=== PATIENT | female | born 1980 | race Caucasian/White ===

== ENCOUNTER 2022-10-29 19:51 | Observation (INO) ==
[2022-10-29] MEDS ORDERED: KETOROLAC 30 MG/1 ML VIAL IV STA (22:28)
[2022-10-29 22:46] LABS: Bilirubin,Urine Negative (Negative); Blood, Urine Moderate mg/dL (Negative); Urine Appearance Clear (Clear); Urine Color Orange (Yellow); Urine Specific Gravity 1.025 (1.001-1.035)
[2022-10-29 22:50] LABS: Calcium 9.2 MG/DL (8.5-10.1); Glucose,Urine (UA) 100 mg/dL (Negative); Ketones,Urine Trace mg/dL (Negative); Nitrite,Urine Positive (Negative); Osmolality,Calculated 283.1 MOS/KG (273-304); Potassium 3.7 MMOL/L (3.5-5.1)
[2022-10-29 22:51] LABS: Calcium Oxalate Crystals,Urine Occasional /HPF (Few); Mucus,Urine Occasional /LPF (Occasional); Protein,Urine 100 mg/dL (Negative); RBC,Urine 422 /HPF (0-4); Squamous Epithelial Cell,Urine Occasional /HPF (0-10)
[2022-10-29] MEDS ORDERED: cefTRIAXone 1,000 MG in SODIUM CHLORIDE 0.9% 100 ML IV STA (22:53)
[2022-10-30] MEDS ORDERED: ONDANSETRON 4 MG/2 ML VIAL IV PRN (02:02)
[2022-10-30] MEDS ORDERED: HYDROmorphone 1 MG/1 ML SYRINGE IV PRN (02:02)
[2022-10-30 06:08] LABS: Basophils # 0.1 10*3/uL (0.0-0.2); Basophils % 0.8 % (0.0-0.8); Eosinophils # 0.3 10*3/uL (0.0-0.87); Hematocrit 37.6 VOL% (35.7-47.0); Hemoglobin 12.5 GM/DL (12.0-16.0); Immature Granulocytes % 0.6 %; Immature Granulocytes Absolute 0.05 #; Lymphocytes # 3.5 10*3/uL (1.4-4.0); Lymphocytes % 41.2 % (21.3-54.2); Mean Corpuscular HGB Conc 33.2 GM/DL (32-36); Mean Corpuscular Volume 90.4 FL (87-102); Monocytes # 0.6 10*3/uL (0.11-0.8); Monocytes % 6.5 % (1.7-12.7); Neutrophils % 46.9 % (38.7-73.9); Platelet Count 264 T/CUMM (130-400); Red Blood Count 4.16 MC/CUMM (3.8-5.5); White Blood Count 8.6 T/CUMM (4-12)
[2022-10-30 06:27] LABS: Alanine Aminotransferase 19 U/L (13-56); Albumin 3.1 G/DL (3.4-5.0); Alkaline Phosphatase 79 U/L (45-117); Aspartate Amino Transferase 13 U/L (0-37); Bilirubin,Total < 0.39 MG/DL (0.20-1.00); Blood Urea Nitrogen 13 MG/DL (7-18); Calcium 8.2 MG/DL (8.5-10.1); Carbon Dioxide 22 MMOL/L (21-32); Chloride 113 MMOL/L (98-107); Glucose 116 MG/DL (74-106); Potassium 3.7 MMOL/L (3.5-5.1); Sodium 143 MMOL/L (136-145); Total Protein 6.5 G/DL (6.4-8.2)
[2022-10-30] MEDS ORDERED: PANTOPRAZOLE 40 MG TABLET PO SCH (09:00)
[2022-10-30 12:17] VITALS: BP 132/89
[2022-10-30] MEDS ORDERED: cefTRIAXone 1,000 MG in SODIUM CHLORIDE 0.9% 100 ML IV SCH (23:00)
== END 2022-10-30 13:35 | disposition still patient (30) ==
LOC: N.EDINP 19:51 → N.ED 19:51 → N.TELES 10-30 08:30
PROVIDERS: ADMIT Family Medicine; ATTEND Family Medicine